=== PATIENT | female | born 1970 | race Caucasian/White ===

== ENCOUNTER 2017-07-23 13:23 | Emergency (ER) | payer OTHER ==
[~2017-07-23] VITALS: Ht 160 cm; Wt 74.4 kg
[2017-07-23] MEDS ORDERED: MOTRIN800 MG PO (15:28)
[2017-07-23] MEDS ORDERED: FLEXERIL10 MG PO (15:28)
[2017-07-23 15:42] VITALS: BP 122/56
== END 2017-07-23 15:44 | disposition home or self-care (01) ==
LOC: EME 13:23
DX: S13.4XXA Sprain of ligaments of cervical spine, initial encounter (principal); V49.50XA Passenger injured in collision with unspecified motor vehicles in traffic accident, initial encounter; Y92.410 Unspecified street and highway as the place of occurrence of the external cause; I45.6 Pre-excitation syndrome; Z87.891 Personal history of nicotine dependence
CPT/HCPCS: 99281; 99284